=== PATIENT | female | born 1965 | race Two or more races ===

== ENCOUNTER 2021-03-22 09:52 | Day surgery (SDC) | payer OTHER ==
[2021-03-22 10:22] VITALS: BP 135/68
[2021-03-22] MEDS ORDERED: IV NS 0.9% 250 ML IV ONE (10:27)
[2021-03-22] MEDS ORDERED: IOHEXOL-350 100 ML VIAL IV ONE (10:27)
[2021-03-22] MEDS ORDERED: METOPROLOL TARTRATE INJ 5 MG/5 ML AMPUL IVP ONE (10:30)
[2021-03-22] MEDS ORDERED: IV NS 0.9% 500 ML IV PRN (10:30)
--- NOTE | 2021-03-22 10:52 | NUR ---
pt awake alert oriented vital sign stable not on any distress noted during after CTA PT GOING BACK TO [facility] VITAL SIGN STABLE
[2021-03-22] MEDS ORDERED: NITROGLYCERIN 0.4 MG/TAB BOTTLE SL PRN (11:00)
[2021-03-22] MEDS ORDERED: METOPROLOL TARTRATE INJ 5 MG/5 ML AMPUL ONE (11:19)
== END 2021-03-22 23:59 | disposition home or self-care (01) ==
LOC: CT 09:52
PROVIDERS: ATTEND Internal Medicine Interventional Cardiology
DX: R07.9 Chest pain, unspecified (principal); M47.819 Spondylosis without myelopathy or radiculopathy, site unspecified
CPT/HCPCS: 75574; J3490; J7050; Q9967